=== PATIENT | male | born 1955 | race Caucasian/White ===

== ENCOUNTER 2020-01-28 10:21 | Inpatient (IN) | payer MEDICARE, OTHER, SELFPAY ==
[2020-01-28] VITALS (66 sets, daily range): BP systolic 138–189; BP diastolic 61–123; PULSE 30–75; RESP 10–28; TEMP 36.7–36.8; O2SAT 93–99; BMI 29.9
[2020-01-28] MEDS: FUROsemide 10 mg/mL SDV 10mL 80 MG IVP (10:41)
[2020-01-28] MEDS: hyDRALAzine 20 mg/mL INJ 1 mL IVP (10:41)
[2020-01-28] MEDS: nitroglycerin 1 gm/inch oint Pkt 0.5 INCH TOPICAL (10:42)
--- NOTE | 2020-01-28 10:42 | XR_ITS ---
WS: [id number] Exam: XR chest 1V portable [id number] Date/Time of Exam: 01/28/2020 10:42 AM Reason For Exam: dyspnea/cough No priors. The lungs are fully expanded. There is coarsening of interstitial markings throughout both lungs that may represent chronic change. No consolidating infiltrates are seen. No pleural effusions. Cardiac e nlargement noted. The mediastinum and bony thorax are intact. Monitoring leads superimpose the chest. XR/XR chest 1V portable [id number] IMPRESSION: 1. Coarsening of interstitial markings throughout both lungs that may represent chronic change. 2. No acute cardiopulmonary finding. Mild cardiomegaly
--- NOTE | 2020-01-28 10:42 | ECG_ITS ---
Test Date: 2020-01-28 Pat Name: Dimitry Htuson Department: Room: Gender: Male Cardiology Physician: : [id number] Requested By: Aron Rodriguez Order Number: [id number] Reading MD: Measurements Intervals [place] Rate: 38 P: GA: -1 QRS: 72 QRSD: 152 T: 197 QT: 604 QTc: 481 Interpretive Statements SINUS BRADYCARDIA WITH 2ND DEGREE AV BLOCK, 2:1 OR MOBITZ TYPE II RIGHT BUNDLE BRANCH BLOCK [120+ ms QRS DURATION, UPRIGHT V1, 40+ ms S IN I/aVL/V4/V5/V6] ST DEVIATION AND MODERATE T-WAVE ABNORMALITY, CONSIDER INFERIOR ISCHEMIA [-0.1+ mV T WAVE IN II/aVF] PROLONGED QT INTERVAL CRITICAL TEST RESULT No previous ECG available for comparison [id number] f
--- NOTE | 2020-01-28 10:43 | W.ED.ARRPALP ---
HPI - Arrhythmia/Palpitations General: Chief Complaint: Arrhythmia/Palpitations Stated Complaint: low heartrate Time Seen by Provider: 01/28/20 10:38 History of Present Illness: HPI narrative: 64-year-old male presents to the emergency room with a complaint of slow heart rate lightheadedness and dizziness. Patient was previously on metoprolol and recently had it stopped. He had a stay at the [facility] very recently and was discharged home off of his metoprolol. He continued to be on Lasix he does have some chronic kidney disease according to the daughter. He denies having any chest pain. He has poor exercise tolerance very lightheaded and dizzy with any activity. MD complaint: palpitations Onset (ago): day(s) Duration: constant Severity: severe Context: occurred during rest and occurred during exertion Arrhythmia history: other (Bradycardia) Associated symptoms: Reports short of breath and other (Orthopnea); Deny anxiety, cough, diaphoresis, muscle cramps, nausea, paresthesias, pre-syncope, sense of impending doom, syncope or vomiting Review of Systems Const: Denies: diaphoresis ENMT: Denies: throat pain, ear or mastoid pain, nasal discharge or nasal congestion Card: Denies: syncope or pre-syncope Resp: Denies: dyspnea, productive cough or non-productive cough GI: Denies: nausea or vomiting : Denies: flank pain, dysuria, urinary frequency or urinary urgency Musc: Denies: muscle cramps Skin/Breast: Denies: rash or pruritus Psych: Denies: anxiety PFSH ED PFSH: Medical History Chronic kidney disease COPD (chronic obstructive pulmonary disease) History of atrial fibrillation History of congestive heart failure Hypertension Peptic ulcer disease Tobacco abuse Surgical History Hx of cardiac cath December 2012, stent to LAD performed by Dr. Morataya Family History Mother Chronic kidney disease (CKD) ESRD, on PD Father CAD (coronary artery disease) Social History Smoking and tobacco status: current every day smoker cigarettes Alcohol intake: current Alcohol intake frequency: 0-2 Drinks per Day Substance/Drug Use: never Physical Exam Const: COMMON NORMALS: no acute distress GENERAL APPEARANCE: cooperative and comfortable ORIENTATION/CONSCIOUSNESS: Yes awake, Yes oriented to person, Yes oriented to place and Yes oriented to time HENMT: COMMON NORMALS: normocephalic, atraumatic and hearing grossly normal bilaterally HEAD & SCALP: normocephalic and atraumatic Eye: COMMON NORMALS: Equal, round and reactive pupils present, EOMs intact bilaterally, conjunctivae normal and no scleral icterus CONJUNCTIVA: Yes conjunctivae normal PUPIL: Yes Equal, round and reactive pupils present Neck/C-Spine: COMMON NORMALS: full ROM, no lymphadenopathy, supple and no JVD Lymph: LYMPHATIC: no lymphadenopathy noted and no lymphedema noted Resp: COMMON NORMALS: normal respiratory effort, No retractions, No use of accessory muscles and clear to auscultation bilaterally AUSCULTATION: clear to auscultation bilaterally Cardio: COMMON NORMALS: no JVD, regular rhythm and No murmurs present (Cardio) RATE: bradycardic RHYTHM: regular rhythm GI: COMMON NORMALS: Soft to palpation and No hepatosplenomegaly present AUSCULTATION: Yes normoactive bowel sounds PALPATION: Yes Soft to palpation, No Tenderness to palpation present (GI), No Guarding due to palpation present (GI) and Yes No hepatosplenomegaly present Extremity: COMMON NORMALS: normal to inspection, capillary refill normal, no clubbing, cyanosis or edema, no calf tenderness and no pedal edema Neuro: SENSORIUM/ORIENTATION: Yes oriented to person, Yes oriented to place and Yes oriented to time Skin: COMMON NORMALS: no rashes or lesions noted GENERAL SKIN EXAM: no rashes or lesions noted Course Vital Signs: Vital signs: Vital Signs Temperature 97.6 F 01/29/20 08:00 Pulse Rate 40 L 01/29/20 08:00 Respiratory Rate 18 01/29/20 08:00 Blood Pressure 176/79 01/29/20 08:00 Pulse Oximetry 95 01/29/20 06:00 MDM - Arrhythmia/Palpitations MDM Narrative: Medical decision making narrative: Admit to the ICU. Patient has been given atropine which did not really make much of improvement in his heart rate. However he is relatively asymptomatic while laying in bed his blood pressure is still actually very elevated and he was started on nitro drip to control his blood pressure. Dr. Newman is seen the patient in the emergency room he will contact Dr. Hutchinson to look at getting an implantable pacer defibrillator. Electrolytes are normal of concern is patient does have a prolonged QT however it is probably related to his Mobitz type II block. Lab Data: Labs: Lab Results 01/28/20 01/28/20 01/28/20 Range/Units 10:37 10:37 10:37 WBC 12.5 H (4.0-10.0) 10^3/ uL RBC 4.15 (4.1-5.3) 10^6/u L Hgb 13.5 (11.7-16.6) g/dL Hct 40.8 L (42.0-52.0) % MCV 98.3 H (80-94) fL MCH 32.5 (28.0-34.0) pg MCHC 33.1 (30.0-36.0) g/dL RDW 13.0 (12.1-15.1) % Plt Count 168 (130-400) 10^3/c mm MPV 11.3 H (7.4-10.4) fL Neut % (Auto) 70.9 % Lymph % (Auto) 17.5 % [place] % (Auto) 6.9 % Eos % (Auto) 3.5 % Baso % (Auto) 0.6 % Neut # (Auto) 8.89 H (1.8-7.7) 10^3/u L Lymph # (Auto) 2.2 (0.8-4.8) 10^3/u L [place] # (Auto) 0.9 (0.2-0.9) 10^3/u L Eos # (Auto) 0.4 (0.0-0.8) 10^3/u L Baso # (Auto) 0.1 (0.0-0.1) 10^3/u L Nucleated RBC % (a uto) 0 % Nucleated RBCs # 0.0 /100WBC Sodium 141 (136-145) mmol/L Potassium 3.4 L (3.5-5.1) mmol/L Chloride 100 (98-107) mmol/L Carbon Dioxide 33 H (22-29) mmol/L Anion Gap 11.4 (5-19) BUN 19 (8-23) mg/dL Creatinine 2.6 H (0.7-1.2) mg/dL GFR Calculation 24.8 L (90-130) mL/min Glucose 93 (65-115) mg/dL Calculated Osmolal ity 294 (285-295) mOsm/k g Calcium 8.9 (8.5-10.5) mg/dL Magnesium 2.1 (1.7-2.3) mg/dL Total Bilirubin 0.4 (0.15-1.2) mg/dL AST 13 (0-40) U/L ALT 20 (0-41) U/L Alkaline Phosphata se 70 (40-130) IU/L Creatine Kinase 32 L (39-308) U/L Troponin T Baselin e 52 H (0-15) ng/L NT-Pro-B Natriuret Pep 9549 H (0-125) pg/mL Total Protein 6.2 L (6.6-8.7) g/dL Albumin 3.7 (3.5-5.2) g/dL Globulin 2.5 (1.3-4.6) g/dL TSH (0.27-4.20) uIU/ mL 01/28/20 Range/Units 10:37 WBC (4.0-10.0) 10^3/ uL RBC (4.1-5.3) 10^6/u L Hgb (11.7-16.6) g/dL Hct (42.0-52.0) % MCV (80-94) fL MCH (28.0-34.0) pg MCHC (30.0-36.0) g/dL RDW (12.1-15.1) % Plt Count (130-400) 10^3/c mm MPV (7.4-10.4) fL Neut % (Auto) % Lymph % (Auto) % [place] % (Auto) % Eos % (Auto) % Baso % (Auto) % Neut # (Auto) (1.8-7.7) 10^3/u L Lymph # (Auto) (0.8-4.8) 10^3/u L [place] # (Auto) (0.2-0.9) 10^3/u L Eos # (Auto) (0.0-0.8) 10^3/u L Baso # (Auto) (0.0-0.1) 10^3/u L Nucleated RBC % (a uto) % Nucleated RBCs # /100WBC Sodium (136-145) mmol/L Potassium (3.5-5.1) mmol/L Chloride (98-107) mmol/L Carbon Dioxide (22-29) mmol/L Anion Gap (5-19) BUN (8-23) mg/dL Creatinine (0.7-1.2) mg/dL GFR Calculation (90-130) mL/min Glucose (65-115) mg/dL Calculated Osmolal ity (285-295) mOsm/k g Calcium (8.5-10.5) mg/dL Magnesium 2.2 (1.7-2.3) mg/dL Total Bilirubin (0.15-1.2) mg/dL AST (0-40) U/L ALT (0-41) U/L Alkaline Phosphata se (40-130) IU/L Creatine Kinase (39-308) U/L Troponin T Baselin e (0-15) ng/L NT-Pro-B Natriuret Pep (0-125) pg/mL Total Protein (6.6-8.7) g/dL Albumin (3.5-5.2) g/dL Globulin (1.3-4.6) g/dL TSH 1.13 (0.27-4.20) uIU/ mL Discharge Plan Discharge Patient Disposition: Admitted As Inpatient Admit Provider: Alise Sanford Clinical Impression: Heart block AV second degree, Hypertension, COPD (chronic obstructive pulmonary disease), Chronic kidney disease, History of congestive heart failure Condition: Stable Interventions: ED Discharge Assessment Last Done: 01/28/20 12:46 ED Charges Last Done: 01/28/20 12:46 Discharge Date/Time: 01/28/20 13:39 Coding Level of Care Code ED Electrical Panel Builder for Chg Fwd Exam Comprehensive
[2020-01-28 10:51] LABS: Basophils # 0.1 10^3/uL (0.0-0.1); Basophils % 0.6 %; Eosinophils # 0.4 10^3/uL (0.0-0.8); Eosinophils % 3.5 %; Hematocrit 40.8 % (42.0-52.0); Hemoglobin 13.5 g/dL (11.7-16.6); Lymphocytes # 2.2 10^3/uL (0.8-4.8); Lymphocytes % 17.5 %; Mean Corpuscular HGB Conc 33.1 g/dL (30.0-36.0); Mean Corpuscular Hemoglobin 32.5 pg (28.0-34.0); Mean Corpuscular Volume 98.3 fL (80-94); Mean Platelet Volume 11.3 fL (7.4-10.4); Monocytes # 0.9 10^3/uL (0.2-0.9); Monocytes % 6.9 %; Neutrophils # 8.89 10^3/uL (1.8-7.7); Neutrophils % 70.9 %; Nucleated Red Blood Cells % 0 %; Platelet Count 168 10^3/cmm (130-400); Red Blood Count 4.15 10^6/uL (4.1-5.3); White Blood Count 12.5 10^3/uL (4.0-10.0)
--- NOTE | 2020-01-28 10:51 | PC.NURSE ---
pt also has left shoulder pain from a fall
[2020-01-28 11:03] LABS: Troponin(5th) Baseline 52 ng/L (0-15)
[2020-01-28] MEDS: atropine 0.1 mg/mL Syr 10 mL 0.5 MG IVP ×2 (11:05→11:06)
[2020-01-28 11:09] LABS: Alanine Aminotransferase 20 U/L (0-41); Albumin Level 3.7 g/dL (3.5-5.2); Alkaline Phosphatase 70 IU/L (40-130); Anion Gap 11.4 (5-19); Aspartate Amino Transferase 13 U/L (0-40); Blood Urea Nitrogen 19 mg/dL (8-23); Calcium 8.9 mg/dL (8.5-10.5); Carbon Dioxide 33 mmol/L (22-29); Chloride 100 mmol/L (98-107); Creatine Phosphokinase 32 U/L (39-308); Globulin 2.5 g/dL (1.3-4.6); Glomerular Filtration Rate 24.8 mL/min (90-130); Glucose 93 mg/dL (65-115); Magnesium 2.1 mg/dL (1.7-2.3); NT Pro B Type Natriuretic Pept 9549 pg/mL (0-125); Osmolality Calculated 294 mOsm/kg (285-295); Potassium 3.4 mmol/L (3.5-5.1); Sodium 141 mmol/L (136-145); Total Bilirubin 0.4 mg/dL (0.15-1.2); Total Protein 6.2 g/dL (6.6-8.7)
--- NOTE | 2020-01-28 11:12 | PC.NURSE ---
per verbal order of ER physician NTP removed from pt and pt placed on pacer pads and zoll monitor.
[2020-01-28] MEDS: nitroglycerin drip 50 MG/250 ML PREMIX IV (11:18)
--- NOTE | 2020-01-28 11:36 | XR_ITS ---
WS: [id number] Exam: XR shoulder LT min 2V* [id number] Date/Time of Exam: 01/28/2020 11:36 AM Reason For Exam: pain No fracture or dislocation. Soft tissue calcification seen along the humeral head suggesting calcific bursitis and/or tendinitis. Arthrosis at the AC joint with soft tissue calcification. XR/XR shoulder LT min 2V* [id number] IMPRESSION: 1. No fracture or dislocation. 2. Probable calcific tendinitis and/or bursitis. AC joint arthrosis and degener ative change.
--- NOTE | 2020-01-28 12:16 | PM.CONSULT ---
Providers/Reason For Consult Consulting Physican/Specialty*: Cardiology Reason for Consult*: Heart block History of Present Illness History of Present Illness Dimitry Hutson is a 64 year old male presented to the emergency room with dizziness shortness of breath presyncope and heart rate of 38. He was found to be in Mobitz type II heart block and a systolic blood pressure around 180. Patient is hard of hearing therefore source of history is daughter who is by bedside. According to her patient has history of congestive heart failure, COPD, hypertension and chronic kidney disease with GFR less than 30. Patient was admitted few days ago at an outside hospital for weakness dizziness shortness of breath and bradycardia. He was at that time on metoprolol for blood pressure reasons. He was taken off of metoprolol and sent home. His condition did not improve he continued to be weak and now he is to the point that he barely can walk a few feet without being short of breath. Today when his heart rate dips down into 30s he decided to come to the ER. He denies chest pain he continues to smoke few cigarettes a day. He denies any prior history of intervention. In the past he has been told that he may will get pacemaker at some point. Meds/Allergies Home Medications and Allergies Home Medications Medication Instructions Recorded Confirmed Last Taken Type aspirin 81 mg PO DAILY 01/28/20 01/28/20 01/28/20 History bumetanide 1 mg PO BID 01/28/20 01/28/20 01/28/20 History clopidogrel 75 mg PO DAILY 01/28/20 01/28/20 01/28/20 History lisinopril 20 mg PO DAILY 01/28/20 01/28/20 01/28/20 History simvastatin 40 mg PO DAILY 01/28/20 01/28/20 01/27/20 History tramadol 50 mg PO Q6H PRN 01/28/20 01/28/20 Unknown History Allergies Allergy/AdvReac Type Severity Reaction Status Date / Time fish derived Allergy ALGY-Anaphy Verified 01/28/20 10:43 laxis Iodinated Contrast Media Allergy ALGY-Anaphy Verified 01/28/20 10:43 laxis Current Medications Current Medications Generic Name Dose Route Start Last Admin Trade Name Freq PRN Reason Stop Dose Admin Nitroglycerin/Dextrose 50 mg in 250 mls @ 0 mls/hr 01/28/20 11:00 01/28/20 11:18 Nitroglycerin Drip IV 5 mcg/min .Q0M JOAN 1.5 mls/hr Administration Protocol Per Protocol PFSH Acute PFSH: Medical History Chronic kidney disease COPD (chronic obstructive pulmonary disease) History of atrial fibrillation History of congestive heart failure Hypertension Peptic ulcer disease Tobacco abuse Surgical History Hx of cardiac cath December 2012, stent to LAD performed by Dr. Morataya Family History Mother Chronic kidney disease (CKD) ESRD, on PD Father CAD (coronary artery disease) Social History Smoking and tobacco status: current every day smoker cigarettes Alcohol intake: current Alcohol intake frequency: 0-2 Drinks per Day Substance/Drug Use: never Vitals/I&O/Wt Last Vital Signs Temp 98.2 F 01/28/20 10:28 Pulse 38 L 01/28/20 11:11 Resp 20 H 01/28/20 11:11 BP 143/61 01/28/20 11:11 Pulse Ox 95 01/28/20 11:11 Weight last 48 hrs Weight 209 lb Physical Exam Narrative: EXAM NARRATIVE: GENERAL: Patient is alert, awake and oriented x3. NECK: No jugular vein distension. HEENT: No cyanosis. No icterus. No pallor. HEART: Regular S1 and S2. No murmur, rub or gallop. LUNGS: Decreased breath sound bilaterally with prolonged expiration ABDOMEN: Soft, nontender and nondistended. Positive bowel sounds. No guarding, rebound or tenderness. CENTRAL NERVOUS SYSTEM: Grossly nonfocal. EXTREMITIES: Lower extremities without edema bilaterally. Pulses palpable in the lower extremities, both dorsalis pedis and posterior tibial. A&P Assessment and plan (1) Heart block AV second degree: Patient has Mobitz type II heart block with prolonged QT most likely due to bradycardia, her electrolyte balances are fine. We will check magnesium. He was taking erythromycin but quit 3 to 4 days ago. Most likely patient has underlying conduction abnormality and now exhibiting complete heart block. He is stable vital fu infact systolic blood pressure is around 180 since he is mentating good we will monitor him most likely he will be getting permanent pacemaker, we will rule him out for any reversible cause. He denies any tick bite or exposure to Covid. I will also obtain echocardiogram to assess his LV function. He is a chronic smoker may need to be ruled out for acute coronary syndrome as well. Status: Acute (2) Chronic kidney disease: Patient has known chronic kidney disease we will take him off of lisinopril. I will stop diuretics, may have to rehydrate him Status: Acute Qualifiers: Chronic kidney disease stage: stage 4 (severe) Qualified Code(s): N18.4 - Chronic kidney disease, stage 4 (severe) (3) COPD (chronic obstructive pulmonary disease): As per medicine Status: Acute Qualifiers: Emphysema type: unspecified (4) Hypertension: Patient has hypertension with uncontrolled systolic blood pressure 180 recommend nitro drip for now. Status: Acute Qualifiers: Hypertension type: essential hypertension Qualified Code(s): I10 - Essential (primary) hypertension (5) Tobacco abuse: Advised quitting smoking. 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
[2020-01-28] MEDS: nicotine 21 mg Patch 1 PATCH TRANSDERMA (12:31)
--- NOTE | 2020-01-28 12:31 | P.HP_ITS ---
Providers/Chief Complaint Chief Complaint: CHEST PAIN, LOW HR History of Present Illness Dimitry Hutson is a 64 year old male with a past medical history of congestive heart failure, hypertension and peptic ulcer disease that presented to the emergency department for slow heart rate. Patient had been hospitalized last week at [facility] due to concern for pneumonia. Was noted to have bradycardia at that time and taken off of his metoprolol. Patient has a history of coronary artery disease with a stent to his LAD in 2012. Has only been following with his primary care provider, has not followed with cardiology in several years. Patient has had some dizzy spells at home as well as a fall. Daughter brought him into the ER today for further evaluation and treatment due to concern for his slow heart rate Patient was seen and evaluated in the emergency department noted to have symptomatic bradycardia, cardiology consulted and patient was admitted for further evaluation and treatment Patient is very hard of hearing, most HPI obtained from patient's daughter Review of Systems Const: Denies: fever(s) or chills Eyes: Denies: change in vision ENMT: Denies: nasal congestion Card: Denies: chest pain, palpitations or edema Resp: Reports: productive cough (Chronic, unchanged); Denies: dyspnea or hemoptysis GI: Reports: diarrhea; Denies: abdominal pain, nausea, vomiting, constipation, hematochezia or melena : Denies: dysuria or hematuria Musc: Denies: extremity pain or muscle cramps Skin/Breast: Denies: rash or new lesions Neuro: Reports: dizziness; Denies: headache(s) Psych: Denies: anxiety or depression Endo: Denies: polyuria or hot flashes [place]/Lymph: Denies: easy bruising or easy bleeding Medications/Allergies Home Medications Medication Instructions Recorded Confirmed Last Taken Type aspirin 81 mg PO DAILY 01/28/20 01/28/20 01/28/20 History bumetanide 1 mg PO BID 01/28/20 01/28/20 01/28/20 History clopidogrel 75 mg PO DAILY 01/28/20 01/28/20 01/28/20 History lisinopril 20 mg PO DAILY 01/28/20 01/28/20 01/28/20 History simvastatin 40 mg PO DAILY 01/28/20 01/28/20 01/27/20 History tramadol 50 mg PO Q6H PRN 01/28/20 01/28/20 Unknown History Allergies Allergy/AdvReac Type Severity Reaction Status Date / Time fish derived Allergy ALGY-Anaphy Verified 01/28/20 10:43 laxis Iodinated Contrast Media Allergy ALGY-Anaphy Verified 01/28/20 10:43 laxis PFSH Acute PFSH: Medical History (Updated 01/28/20 @ 13:29 by Alfredo Avalos MD) Chronic kidney disease COPD (chronic obstructive pulmonary disease) History of atrial fibrillation History of congestive heart failure Hypertension Peptic ulcer disease Tobacco abuse Surgical History (Updated 01/28/20 @ 12:34 by Alise Sanford DO) Hx of cardiac cath December 2012, stent to LAD performed by Dr. Morataya Family History (Updated 01/28/20 @ 12:35 by Alise Sanford DO) Mother Chronic kidney disease (CKD) ESRD, on PD Father CAD (coronary artery disease) Social History (Updated 01/28/20 @ 12:36 by Alise Sanford DO) Smoking and tobacco status: current every day smoker cigarettes Alcohol intake: current Alcohol intake frequency: 0-2 Drinks per Day Substance/Drug Use: never Vitals/I&O/Wt Last Vital Signs Temp 98.2 F 01/28/20 10:28 Pulse 48 L 01/28/20 12:26 Resp 17 01/28/20 12:26 BP 159/104 01/28/20 12:26 Pulse Ox 95 01/28/20 12:26 Weight last 48 hrs Weight 94.801 kg Physical Exam Const: COMMON NORMALS: patient oriented x3 and alert GENERAL APPEARANCE: cooperative ORIENTATION/CONSCIOUSNESS: Yes awake, Yes oriented to person, Yes oriented to place, Yes oriented to time and Yes Other orientation findings (very hard of hearing) HENMT: COMMON NORMALS: normocephalic and atraumatic HEAD & SCALP: normocephalic and atraumatic Eye: COMMON NORMALS: Equal, round and reactive pupils present PUPIL: Yes Equal, round and reactive pupils present Neck/C-Spine: COMMON NORMALS: supple GENERAL: Yes normal visual inspection Resp: COMMON NORMALS: normal respiratory effort EFFORT & INSPECTION: Yes able to speak in complete sentences AUSCULTATION: clear to auscultation bilaterally, no rhonchi and no wheezes OTHER: diminished breath sounds b ilaterally, no wheezing or rhonchi Cardio: OTHER: bradycardic, no appreciable murmur GI: COMMON NORMALS: Soft to palpation and non-tender INSPECTION: No abdominal distension AUSCULTATION: Yes normoactive bowel sounds PALPATION: Yes Soft to palpation Extremity: COMMON NORMALS: no clubbing, cyanosis or edema and no calf tenderness Neuro: COMMON NORMALS: patient oriented x3, CN's II-XII intact bilaterally, moves all extremities and no focal motor deficits SENSORIUM/ORIENTATION: Yes alert, Yes oriented to person, Yes oriented to place and Yes oriented to time SPEECH: speech normal Psych: COMMON NORMALS: mental status grossly normal and cooperative Skin: COMMON NORMALS: no rashes or lesions noted GENERAL SKIN EXAM: no rashes or lesions noted Data : 01/28/20 10:37 01/28/20 10:37 CXR: I personally reviewed and interpreted this imaging study as follows: Radiologist's impression: XR/XR chest 1V portable [id number] IMPRESSION: 1. Coarsening of interstitial markings throughout both lungs that may represent chronic change. 2. No acute cardiopulmonary finding. Mild cardiomegaly Xray Ortho: I personally reviewed and interpreted this imaging study as follows: Radiologist's impression: IMPRESSION: 1. No fracture or dislocation. 2. Probable calcific tendinitis and/or bursitis. AC joint arthrosis and degenerative change. A&P Assessment and plan (1) Symptomatic bradycardia: Admit to ICU on telemetry Cardiology, Dr. Avalos consulted Plan for pacemaker placement Echocardiogram ordered for further evaluation Obtain records from outside facility Mag ordered, TSH ordered Hold any medications that cause worsening QT prolongation Status: Acute (2) COPD (chronic obstructive pulmonary disease): RTAT Oxygen per protocol Recommend outpatient PFTs Status: Acute Qualifiers: Emphysema type: unspecified (3) Chronic kidney disease: unknown baseline creatinine, back to 2012 patient had creatinine above 2 Monitor closely Strict I/Os obtain records from outside facility Status: Acute Qualifiers: Chronic kidney disease stage: stage 4 (severe) Qualified Code(s): N18.4 - Chronic kidney disease, stage 4 (severe) (4) Hypertension: with HTN urgency and started on nitro drip in the ED, will continue at this time Status: Acute Qualifiers: Hypertension type: essential hypertension Qualified Code(s): I10 - Essential (primary) hypertension (5) History of congestive heart failure: Given lasix in the ED x 1 Hold further bumex at this time Monitor strict intake and output as well as daily weights ECHO ordered and pending Status: Acute Additional A&P Information CAD with stent to LAD [place] [address] Morataya, continue asprin, plavix, statin. Not on beta hadley due to above Patient is very hard of hearing DVT ppx: SCDs, no pharmacologic ppx at this time due to anticipated procedure COde status: Full code Attestations Medical Necessity Statement*: Hospitalization due to symptomatic bradycardia requiring pacemaker placement, expected stay greater than 2 midnights Coding Level of Care Code Acute Experimental Physicist for g Fwd Exam Comprehensive Diagnoses Symptomatic bradycardia R00.1 COPD (chronic obstructive pulmonary disease) J44.9 Emphysema type: unspecified Chronic kidney disease N18.4 Chronic kidney disease stage: stage 4 (severe) Hypertension I10 Hypertension type: essential hypertension History of congestive heart failure Z86.79
--- NOTE | 2020-01-28 12:42 | ECG_ITS ---
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1955 Requested By: Aron Rodriguez Order Number: [id number] Reading MD: Measurements Intervals [place] Rate: 50 P: -62 [place]: 154 QRS: -70 QRSD: 154 T: 73 QT: 624 QTc: 573 Interpretive Statements ECTOPIC ATRIAL BRADYCARDIA WITH OCCASIONAL SUPRAVENTRICULAR PREMATURE COMPLEXES POSSIBLE LEFT ATRIAL ENLARGEMENT [-0.1mV P WAVE IN V1/V2] RIGHT BUNDLE BRANCH BLOCK [120+ ms QRS DURATION, UPRIGHT V1, 40+ ms S IN I/aVL/V4/V5/V6] LEFT ANTERIOR FASCICULAR BLOCK [QRS AXIS <= -45, QR IN I, RS IN II] LEFT VENTRICULAR HYPERTROPHY AND ST-T CHANGE [VOLTAGE CRITERIA PLUS ST/T ABNORMALITY] POSSIBLE SEPTAL MYOCARDIAL INFARCTION , OF INDETERMINATE AGE [30 ms Q WAVE IN V1/V2] PROLONGED QT INTERVAL CRITICAL TEST RESULT No previous ECG available for comparison [id number]
[2020-01-28 13:14] LABS: Magnesium 2.2 mg/dL (1.7-2.3); Thyroid Stimulating Hormone 1.13 uIU/mL (0.27-4.20)
--- NOTE | 2020-01-28 13:38 | PC.NURSE ---
650mL urine output while in the ED prior to admission to the ICU.
--- NOTE | 2020-01-28 15:12 | PC.NURSE ---
recd. from e.d. up to bed. ro. wt. bearing w/o diff. denies any pain. slow a-fib. amb. to bathroom w/o difficulty. voids very small amts but frequently.
--- NOTE | 2020-01-28 15:53 | PC.NURSE ---
making several trips to bathroom. voids small amts.
--- NOTE | 2020-01-28 16:48 | PM.CONSULT ---
Providers/Reason For Consult Consulting Physican/Specialty*: Dr. Hutchinson/cardiothoracic surgery Reason for Consult*: Mobitz type II AV heart block with symptomatic bradycardia refractory to medical management Requesting Physcian: Dr. Avalos Attending Physician: Alise Sanford DO History of Present Illness History of Present Illness Dimitry Hutson is a 64 year old male currently resting comfortably in the ICU after presenting to the emergency department with his daughter with concerns of progressive bradycardia. He presented with dizziness and shortness of breath and presyncope as well as a fall with a heart rate of 38. He has a comorbidities which include COPD, continued substantial tobacco use, congestive heart failure, and chronic kidney disease stage IV with a GFR of less than 30. He was recently hospitalized at [facility] for what was felt to be pneumonia to be bradycardic at that time. He has no history of coronary artery disease and prior stenting to the LAD in 2012. Admission EKG revealed bradycardia with a heart rate of 38 and second-degree AV block along with a right bundle branch and incomplete left AV block. Prolonged QT interval Dr. Avalos has contacted me by phone and requested permanent dual-chamber pacemaker implantation. Review of Systems Eyes: Reports: blurry vision ENMT: Denies: odynophagia Card: Reports: pre-syncope and dyspnea on exertion; Denies: chest pain Resp: Reports: non-productive cough; Denies: wheezing, pain on inspiration or hemoptysis GI: Reports: diarrhea; Denies: abdominal pain or hematemesis Neuro: Reports: dizziness Psych: Denies: anxiety or depression Uziel/Lymph: Denies: easy bruising, easy bleeding or petechiae Meds/Allergies Home Medications and Allergies Home Medications Medication Instructions Recorded Confirmed Last Taken Type aspirin 81 mg PO DAILY 01/28/20 01/28/20 01/28/20 History bumetanide 1 mg PO BID 01/28/20 01/28/20 01/28/20 History clopidogrel 75 mg PO DAILY 01/28/20 01/28/20 01/28/20 History lisinopril 20 mg PO DAILY 01/28/20 01/28/20 01/28/20 History simvastatin 40 mg PO DAILY 01/28/20 01/28/20 01/27/20 History tramadol 50 mg PO Q6H PRN 01/28/20 01/28/20 Unknown History Allergies Allergy/AdvReac Type Severity Reaction Status Date / Time fish derived Allergy ALGY-Anaphy Verified 01/28/20 10:43 laxis Iodinated Contrast Media Allergy ALGY-Anaphy Verified 01/28/20 10:43 laxis Current Medications Current Medications Generic Name Dose Route Start Last Admin Trade Name Freq PRN Reason Stop Dose Admin Nitroglycerin/Dextrose 50 mg in 250 mls @ 0 mls/hr 01/28/20 11:00 01/28/20 11:18 Nitroglycerin Drip IV 5 mcg/min .Q0M JOAN 1.5 mls/hr Administration Protocol Per Protocol PFSH Acute PFSH: Medical History Chronic kidney disease COPD (chronic obstructive pulmonary disease) History of atrial fibrillation History of congestive heart failure Hypertension Peptic ulcer disease Tobacco abuse Surgical History Hx of cardiac cath December 2012, stent to LAD performed by Dr. Morataya Family History Mother Chronic kidney disease (CKD) ESRD, on PD Father CAD (coronary artery disease) Social History Smoking and tobacco status: current every day smoker cigarettes Alcohol intake: current Alcohol intake frequency: 0-2 Drinks per Day Substance/Drug Use: never Vitals/I&O/Wt Last Vital Signs Temp 98.2 F 01/28/20 10:28 Pulse 44 L 01/28/20 14:30 Resp 22 H 01/28/20 14:30 BP 174/86 01/28/20 14:30 Pulse Ox 99 01/28/20 14:25 Weight last 48 hrs Weight 209 lb Physical Exam Const: COMMON NORMALS: patient oriented x3 HENMT: COMMON NORMALS: hearing grossly not normal bilaterally GENERAL EAR: hearing grossly impaired Laterality: bilateral Chest: COMMONS NORMALS: normal inspection of the chest (Of defibrillating lead and EKG leads removed from the left anterior chest wall at the planned site for pacemaker implantation.) and normal palpation of entire chest wall Resp: COMMON NORMALS: clear to auscultation bilaterally AUSCULTATION: clear to auscultation bilaterally Cardio: COMMON NORMALS: S1 normal heart sound present; negative for regular rate RATE: abnormal rate and bradycardic RHYTHM: abnormal rhythm (Ectopic beats with intermittent A. fib) irregularly irregular and with ectopic beats HEART SOUNDS: S1 normal heart sound present and no gallops BRUITS: no carotid bruits PERIPHERAL PULSES: radial pulses present positive bilateral 2+ GI: COMMON NORMALS: Soft to palpation PALPATION: Yes Soft to palpation and No Tenderness to palpation present (GI) Extremity: COMMON NORMALS: no clubbing, cyanosis or edema Neuro: COMMON NORMALS: patient oriented x3 A&P Assessment and plan (1) Heart block AV second degree: Mobitz type II AV block with symptomatic bradycardia including presyncope and recent fall. Medically refractory. Plan: We will plan for dual-chamber pacemaker implantation tomorrow afternoon. Appropriate preoperative testing will be confirmed. Details of the procedure were frankly discussed as well the rationale for recommending the procedure. Risks reviewed include the possibility of , stroke, heart attack, major bleeding, infection which may result in need to explant the leads and/or generator, pneumonia, pneumothorax requiring chest tube, migration of the leads requiring revision and repositioning, organ failure, failure to benefit, prolonged hospital stay, pain after the procedure, need for further procedures, inability to complete the procedure, and need for long-term followup and monitoring. All questions were answered. Appropriate consents will be provided for review and signature. Status: Acute Coding Level of Care Code Acute Channel Lip Wetter for [facility] Diagnoses Heart block AV second degree I44.1
[2020-01-28] MEDS: acetaminophen 325 mg Tablet 650 MG PO ×2 (16:57→22:57)
[2020-01-28 17:58] LABS: Troponin 5 6HR 52.23 ng/L (0-15); Troponin 5 6HR Delta 0.23 ng/L (0-12)
--- NOTE | 2020-01-28 18:03 | PC.NURSE ---
several trips to bathroom. was instructed to save urine, only saved once and that was only 100cc.
[2020-01-28] MEDS: bumetanide 1 mg Tablet PO (18:28)
[2020-01-28] MEDS: mupirocin oint 22 gm 1 APPLIC NOSTRIL-B (18:29)
--- NOTE | 2020-01-28 18:38 | PC.NURSE ---
cefazolin at 1630 is changed to access control specialist to surgery tomorrow.
--- NOTE | 2020-01-28 19:50 | PC.NURSE ---
Patient resting in bed with eyes closed. Patient does have crackles and expiratory wheezes noted in bilateral lower lobes. Nitro gtt running currently at 25mcg. Patient is alert and orientated, just [place]. Patient was ambulated to bathroom with stand by assist x1 so far thus shift. Dorsal pedal pulses palpable bilaterally +3. No edema noted. Patient continues to run adelita at 30-35 BPM. Patient denies pain. Continue care.
[2020-01-28] MEDS: TRAMadol 50 mg Tablet PO (20:29)
[2020-01-29] VITALS (30 sets, daily range): BP systolic 132–192; BP diastolic 72–136; PULSE 35–100; RESP 12–30; TEMP 36.4–37.1; O2SAT 93–100
--- NOTE | 2020-01-29 | SCC_ITS ---
Procedure Done: Dual chamber pacemaker implantation Implants: Pacemaker generator atrial-ventricular leads 504.4 seconds of fluoroscopic guidance, for a cumulative dose of 51.96 mGy, was provided to Dr. Hutchinson by the radiology department. C-arm images of the chest were saved for the patient's permanent record. LENY
--- NOTE | 2020-01-29 01:32 | PC.NURSE ---
Patient resting soundly in room with eyes closed. Patient did complain of knee pain earlier in the shift and PRN tramadol and Tylenol were given per orders. Pain level has decreased since medication administration. Call light within reach, continue care.
[2020-01-29 04:15] LABS: Basophils # 0.1 10^3/uL (0.0-0.1); Basophils % 0.6 %; Eosinophils # 0.3 10^3/uL (0.0-0.8); Eosinophils % 3.2 %; Hematocrit 39.3 % (42.0-52.0); Hemoglobin 12.8 g/dL (11.7-16.6); Lymphocytes # 2.1 10^3/uL (0.8-4.8); Lymphocytes % 19.3 %; Mean Corpuscular HGB Conc 32.6 g/dL (30.0-36.0); Mean Corpuscular Hemoglobin 32.5 pg (28.0-34.0); Mean Corpuscular Volume 99.7 fL (80-94); Mean Platelet Volume 11.3 fL (7.4-10.4); Monocytes # 0.7 10^3/uL (0.2-0.9); Monocytes % 6.4 %; Neutrophils # 7.45 10^3/uL (1.8-7.7); Neutrophils % 69.8 %; Nucleated Red Blood Cells % 0 %; Platelet Count 168 10^3/cmm (130-400); Red Blood Count 3.94 10^6/uL (4.1-5.3); White Blood Count 10.7 10^3/uL (4.0-10.0)
[2020-01-29 04:52] LABS: Anion Gap 14.3 (5-19); Blood Urea Nitrogen 18 mg/dL (8-23); Calcium 9.1 mg/dL (8.5-10.5); Carbon Dioxide 27 mmol/L (22-29); Chloride 101 mmol/L (98-107); Glucose 90 mg/dL (65-115); Osmolality Calculated 289 mOsm/kg (285-295); Potassium 3.3 mmol/L (3.5-5.1); Sodium 139 mmol/L (136-145)
--- NOTE | 2020-01-29 05:38 | PC.NURSE ---
Bath given with 4% hibaclense solution per orders. Patient tolerated well and new gown changed. Denies any pain, call light within reach. continue care.
--- NOTE | 2020-01-29 05:39 | PC.NURSE ---
SHIFT SUMMARY: Patient alert and orientated, hard of hearing. Patient ambulates self to bathroom frequently. Patient is able to voice concerns and make needs known. Antibiotics given per orders before procedure of pacemaker insertion. Patient has a nitro gtt running at 25mcg. Patient did accidently pull IV out earlier in the shift, and a new 18 gauge IV was started in left AC space. Patient denies pain. Call light within reach. Continue care.
--- NOTE | 2020-01-29 06:09 | P.PN_ITS ---
Subjective Subjective: Interval history: Sleeping on rounds this morning. Heart rate 36. ICU nurses report no difficulties overnight. Responding appropriate. No chest pain. Vitals/I&O/Wt Last Vital Signs Temp 97.8 F 01/29/20 04:00 Pulse 44 L 01/29/20 04:00 Resp 23 H 01/29/20 04:00 BP 181/72 01/29/20 04:00 Pulse Ox 95 01/29/20 02:00 01/28/20 01/28/20 01/29/20 14:59 22:59 06:59 Intake Total 492.775 / 492.775 50 / 542.775 Balance 492.775 / 492.775 50 / 542.775 Weight last 48 hrs Weight 209 lb Physical Exam Const: COMMON NORMALS: patient oriented x3 HENMT: COMMON NORMALS: hearing grossly not normal bilaterally GENERAL EAR: hearing grossly impaired Chest: COMMONS NORMALS: normal inspection of the chest and normal palpation of entire chest wall CHEST: Yes Symmetrical chest wall rise Resp: COMMON NORMALS: normal respiratory effort and clear to auscultation bi laterally AUSCULTATION: clear to auscultation bilaterally Cardio: COMMON NORMALS: S1 normal heart sound present; negative for regular rate RATE: abnormal rate and bradycardic RHYTHM: abnormal rhythm irregularly irregular and with ectopic beats HEART SOUNDS: S1 normal heart sound present Extremity: COMMON NORMALS: no clubbing, cyanosis or edema Neuro: COMMON NORMALS: patient oriented x3 Data : 01/29/20 03:24 01/29/20 03:24 A&P Assessment and plan (1) Heart block AV second degree: Medically refractory Mobitz type II AV heart block with presyncope and recent fall Will plan for pacemaker implantation this afternoon Status: Acute Attestations Medical Necessity Statement*: Medically refractory Mobitz type II AV heart block with presyncope and recent fall Time Spent in Patient Care: less than 15 minutes Coding Level of Care Code Acute Geological Survey Field Assistant for Dario Crum Diagnoses Heart block AV second degree I44.1
--- NOTE | 2020-01-29 07:00 | USCV_ITS ---
Dimitry Hutson Age: 64 Gender: M : 1955 Exam Date: 01/29/2020 06:01 Ordering Phys: Alise Sanford DO Technologist: Bianca Randle [place] [facility] [place]: BRADYCARDIA, CHF BP: 176 / 82 HR: 35 Rhythm: Sinus Technical Quality: Adequate MEASUREMENTS (Male / Female) Normal Values 2D ECHO LV Diastolic Diameter PLAX 4.1 cm 4.2 - 5.9 / 3.9 - 5.3 cm LV Systolic Diameter PLAX 2.6 cm LV Chamber Size 4.8 cm IVS Diastolic Thickness 1.1 cm 0.6 - 1.0 / 0.6 - 0.9 cm IVS Systolic Thickness 1.9 cm LVPW Diastolic Thickness 1.6 cm 0.6 - 1.0 / 0.6 - 0.9 cm LVPW Systolic Thickness 1.5 cm RV Chamber Size 3.8 cm LVOT Diameter 2.0 cm LV Ejection Fraction 2D Teich 66.5 % LA Diameter 4.0 cm LA Width 3.7 cm LA Height 4.4 cm RA Width 4.6 cm RA Height 5.6 cm Aorta at Sinotubular Diameter 3.4 cm M-MODE LV Diastolic Diameter MM 5.7 cm 4.2 - 5.9 / 3.9 - 5.3 cm LV Systolic Diameter MM 4.3 cm LV Ejection Fraction MM Teich 47.8 % IVS Diastolic Thickness MM 0.7 cm 0.6 - 1.0 / 0.6 - 0.9 cm IVS Systolic Thickness MM 0.7 cm LVPW Diastolic Thickness MM 1.2 cm 0.6 - 1.0 / 0.6 - 0.9 cm LVPW Systolic Thickness MM 2.0 cm RV Diastolic Diameter MM 1.6 cm Aortic Annulus Diameter 4.0 cm LA Ao Ratio MM 1.1 MV E Point Septal Separation 1.4 cm DOPPLER AV Peak Velocity 175.0 cm/s LVOT Peak Velocity 138.0 cm/s AV Area Cont Eq vti 2.4 cm squared AV Area Cont Eq pk 2.6 cm squared MV Area PHT 6.5 cm squared Mitral E to A Ratio 0.8 MV E' Velocity 48.0 cm/s Mitral E to MV E' Ratio 16.6 Mitral E to LV E' Lateral Ratio 14.5 Mitral E to LV E' Septal Ratio 20.0 TR Peak Velocity 182.0 cm/s TR Peak Gradient 13.3 mmHg TR Mean Velocity 108.8 cm/s TR Mean Gradient 6.1 mmHg TR Velocity Time Integral 43.9 cm TV Peak E Velocity 80.0 cm/s Right Atrial Pressure 3.0 mmHg Pulmonary Artery Systolic Pressu 16.3 mmHg PV Peak Velocity 59.0 cm/s RV Acceleration Time 0.2 s RV Ejection Time 0.5 s RV AcT/ET 0.4 FINDINGS Left Ventricle Mildly increased left ventricular cavity size. Moderately decreased left ventricular systolic function. Global left ventricular hypokinesis. Left ventricular ejection fraction is estimated at 40 %. Grade I/IV diastolic dysfunction (abnormal relaxation filling pattern), normal to mildly elevated filling pressures. Right Ventricle The right ventricle is normal in size and function. Right Atrium The right atrium is normal in size. Left Atrium The left atrium is normal in size. Mitral Valve Mildly thickened mitral valve. No mitral valve stenosis. Mild mitral valve regurgitation. Aortic Valve Moderate aortic valve calcification. No aortic valve stenosis. No aortic valve regurgitation. Tricuspid Valve Structurally normal tricuspid valve without significant stenosis or regurgitation. Pulmonary artery systolic pressure is normal. Pulmonic Valve Structurally normal pulmonic valve without significant stenosis. There is no pulmonic regurgitation. Pericardium Normal pericardium without effusion. Aorta Normal ascending aorta dimension. CONCLUSIONS 1-Mildly increased left ventricular cavity size. Moderately decreased left ventricular systolic function. Global left ventricular hypokinesis. Left ventricular ejection fraction is estimated at 40 %. Grade I/IV diastolic dysfunction (abnormal relaxation filling pattern), normal to mildly elevated filling pressures. 2-Moderate aortic valve calcification. No aortic valve stenosis. No aortic valve regurgitation. 3-Mildly thickened mitral valve. No mitral valve stenosis. Mild mitral valve regurgitation. 4-There is no pericardial effusion. 5-Pulmonary artery systolic pressure is within normal limits. 6-Right atrial pressure is around 5 mm of mercury. 7-when compared to the prior echocardiogram dated 12/09/2012 left ventricle ejection fraction has decreased from mildly reduced 50% to moderately reduced 40% now. Alfredo Avalos MD (Electronically Signed) Final Date: 29 January 2020 19:54 S
[2020-01-29] MEDS: bumetanide 1 mg Tablet PO (09:09)
[2020-01-29] MEDS: atorvastatin 40 mg Tablet 20 MG PO (09:09)
[2020-01-29] MEDS: pantoprazole 40 mg SDV IVP (09:09)
[2020-01-29] MEDS: lisinopril 20 mg Tablet PO (09:09)
--- NOTE | 2020-01-29 09:09 | ECG_ITS ---
[facility] Test Date: 2020-01-29 Pat Name: Dimitry Hutson Department: Room: ICU04 Gender: Male Electronic Warfare Officer: : 1955 Requested By: Alise Sanford Order Number: [id number] Reading MD: POONAM GARZA Measurements Intervals [place] Rate: 39 P: [place]: -1 QRS: -73 QRSD: 155 T: 69 QT: 594 QTc: 480 Interpretive Statements SINUS BRADYCARDIA WITH 2ND DEGREE AV BLOCK, MOBITZ TYPE II RIGHT BUNDLE BRANCH BLOCK [120+ ms QRS DURATION, UPRIGHT V1, 40+ ms S IN I/aVL/V4/V5/V6] LEFT ANTERIOR FASCICULAR BLOCK [QRS AXIS <= -45, QR IN I, RS IN II] ANTEROSEPTAL MYOCARDIAL INFARCTION [40+ ms Q WAVE IN V1-V4], OF INDETERMINATE AGE INTERPRETATION BASED ON A DEFAULT AGE OF 40 YEARS Compared to ECG 01/28/2020 12:43:48 Bradycardia, nonsinus no longer present Electronically Signed On 01-29-2020 21:04:40 CDT by POONAM GARZA [email or web address] [facility] [employer] [email or web address]/OV/[id number]
[2020-01-29] MEDS: aspirin 81 mg Chew Tablet PO (09:10)
[2020-01-29] MEDS: chlorhexidine gluconate 4% Btl 118 mL 1 APPLIC TOPICAL (09:11)
[2020-01-29] MEDS: TRAMadol 50 mg Tablet PO (09:22)
--- NOTE | 2020-01-29 09:51 | P.PN_ITS ---
Subjective Subjective: Interval history: Patient awake in bed at time of exam. Denied any chest pain or shortness of breath. Discussed with patient plan for pacemaker placement this afternoon, he verbalized understanding and agreed with plan. Vitals/I&O/Wt Last Vital Signs Temp 97.6 F 01/29/20 08:00 Pulse 40 L 01/29/20 08:00 Resp 18 01/29/20 08:00 BP 176/79 01/29/20 08:00 Pulse Ox 95 01/29/20 06:00 01/28/20 01/29/20 01/29/20 22:59 06:59 14:59 Intake Total 492.775 / 492.775 50 / 542.775 103.875 / 103.875 Balance 492.775 / 492.775 50 / 542.775 103.875 / 103.875 Weight last 48 hrs Weight 92.334 kg Weight 94.801 kg Physical Exam Const: COMMON NORMALS: patient oriented x3 and alert GENERAL APPEARANCE: cooperative ORIENTATION/CONSCIOUSNESS: Yes awake, Yes oriented to person, Yes oriented to place, Yes oriented to time and Yes Other orientation findings (very hard of hearing) HENMT: COMMON NORMALS: normocephalic and atraumatic HEAD & SCALP: normocephalic and atraumatic Eye: COMMON NORMALS: Equal, round and reactive pupils present PUPIL: Yes Equal, round and reactive pupils present Neck/C-Spine: COMMON NORMALS: supple GENERAL: Yes normal visual inspection Resp: COMMON NORMALS: normal respiratory effort EFFORT & INSPECTION: Yes able to speak in complete sentences AUSCULTATION: no rhonchi and no wheezes OTHER: diminished breath sounds bilaterally, no wheezing or rhonchi Cardio: OTHER: bradycardic, no appreciable murmur Extremity: COMMON NORMALS: no clubbing, cyanosis or edema and no calf tenderness Neuro: COMMON NORMALS: patient oriented x3, CN's II-XII intact bilaterally, moves all extremities and no focal motor deficits SENSORIUM/ORIENTATION: Yes alert, Yes oriented to person, Yes oriented to place and Yes oriented to time SPEECH: speech normal Psych: COMMON NORMALS: mental status grossly normal and cooperative Skin: COMMON NORMALS: no rashes or lesions noted GENERAL SKIN EXAM: no rashes or lesions noted Data : 01/29/20 03:24 01/29/20 03:24 A&P Assessment and plan (1) Symptomatic bradycardia: Cardiology consult appreciated, Dr. Avalos and Dr. Hutchinson Echocardiogram pending Plan for pacemaker placement this afternoon Hold any medications that cause worsening QT prolongation Status: Acute (2) COPD (chronic obstructive pulmonary disease): RTAT Oxygen per protocol Recommend outpatient PFTs Status: Acute (3) Chronic kidney disease: Chronic kidney disease, baseline creatinine 2-3 Status: Acute (4) Hypertension: Hypertensive urgency, remains on nitro drip per cardiology Status: Acute (5) History of congestive heart failure: Bumex 1 mg twice daily, hold afternoon dose strict intake and output as well as daily weights ECHO ordered and pending Status: Acute Additional A&P Information CAD with stent [place] LAD [place] [address] Morataya, continue asprin, plavix, statin. Not on beta hadley due to above QT prolongation Patient is very hard of hearing DVT ppx: SCDs, no pharmacologic ppx at this time due to anticipated procedure COde status: Full code Diet: N.p.o. Attestations Medical Necessity Statement*: Patient requires further hospitalization due to symptomatic bradycardia requiring pacemaker placement today Coding Level of Care Code Acute Document Management Consultant for Dario Fwcheko Diagnoses Symptomatic bradycardia R00.1 COPD (chronic obstructive pulmonary disease) J44.9 Chronic kidney disease N18.9 Hypertension I10 History of congestive heart failure Z86.79
--- NOTE | 2020-01-29 10:47 | P.ANESASSM_ITS ---
Pre-Anesthetic Assessment Pre-Anesthetic Assessment: Height/Weight: Height 1.78 m Weight 92.334 kg Temp Pulse Resp BP Pulse Ox 97.6 F 43 L 28 H 175/76 97 01/29/20 08:00 01/29/20 10:00 01/29/20 10:00 01/29/20 10:00 01/29/20 10:00 Preop Diagnosis: Type II AV block Proposed Procedure: Operation Date: 01/29/20 15:30 Proposed Procedures p Dual chamber Pacemaker Insertion(Not Applicable) - Roberto Hutchinson MD Familial anesthetic complications: None Was Beta Jarek taken within 24 hours: N/A Social: Social History: Tobacco and No alcohol Exam: Pre-Anes Outpt Exam: alert, oriented x 3, clear to auscultation bilaterally and regular rate & rhythm Airway: Cervical ROM: WNL MP: 2 Dentition: Full Additional comments: patient very PICAYUNE Pulmonary: Pulmonary: COPD CV/HEM: CV/HEM: HTN Comments: Type II mobitz AV block with bradycardia Hypertensive - started on nitro drip : : Chronic renal Insufficiency Metabolic: Metabolic: Hyperlipidemia Anesthetic Plan: ASA status: 4 Anesthesia: MAC Risk of > 500 ml blood loss (7ml/kg in children): No Meds/Allergies Current Medications: Current Medications Generic Name Dose Route Start Last Admin Trade Name Freq PRN Reason Stop Dose Admin Acetaminophen 650 mg 01/28/20 13:26 01/28/20 22:57 Tylenol PO 650 mg Q6H PRN Administration MILD PAIN Aspirin 81 mg 01/29/20 09:00 01/29/20 09:10 Aspirin Chewable PO 81 mg DAILY JOAN Administration Atorvastatin Calci um 20 mg 01/29/20 09:00 01/29/20 09:09 Lipitor PO 20 mg DAILY JOAN Administration Bumetanide 1 mg 01/28/20 18:00 01/29/20 09:09 Bumex PO 1 mg BID JOAN Administration Chlorhexidine Gluc mirtha 1 applic 01/29/20 09:00 01/29/20 09:11 Betasept TOPICAL 1 appful DAILY JOAN Administration Nitroglycerin/Dext daniel 50 mg in 250 mls @ 0 mls/hr 01/28/20 11:00 01/29/20 10:[address] ip IV 35 mcg/min .Q0M JOAN 10.5 mls/hr Titration Protocol Per Protocol Lisinopril 20 mg 01/29/20 09:00 01/29/20 09:09 Prinivil PO 20 mg DAILY JOAN Administration Pantoprazole Sodiu m 40 mg 01/29/20 09:00 01/29/20 09:09 Protonix IVP 40 mg DAILY JOAN Administration Tramadol HCl 50 mg 01/28/20 13:26 01/29/20 09:22 Ultram PO 50 mg Q6H PRN Administration Pain PFSH Anesthesia PFSH: Medical History Chronic kidney disease COPD (chronic obstructive pulmonary disease) History of atrial fibrillation History of congestive heart failure Hypertension Peptic ulcer disease Tobacco abuse Surgical History Hx of cardiac cath December 2012, stent to LAD performed by Dr. Morataya Family History Mother Chronic kidney disease (CKD) ESRD, on PD Father CAD (coronary artery disease) Social History Smoking and tobacco status: current every day smoker cigarettes Alcohol intake: current Alcohol intake frequency: 0-2 Drinks per Day Substance/Drug Use: never Data Anesthesia CBC & Chem 7: 01/29/20 03:24 01/29/20 03:24 Other Labs: Laboratory Results - last 48 hr 01/28/20 01/28/20 01/28/20 10:37 10:37 10:37 WBC 12.5 H RBC 4.15 Hgb 13.5 Hct 40.8 L MCV 98.3 H MCH 32.5 MCHC 33.1 RDW 13.0 Plt Count 168 MPV 11.3 H Neut % (Auto) 70.9 Lymph % (Auto) 17.5 Shannon % (Auto) 6.9 Eos % (Auto) 3.5 Baso % (Auto) 0.6 Neut # (Auto) 8.89 H Lymph # (Auto) 2.2 Shannon # (Auto) 0.9 Eos # (Auto) 0.4 Baso # (Auto) 0.1 Nucleated RBC % (auto) 0 Nucleated RBCs # 0.0 Sodium 141 Potassium 3.4 L Chloride 100 Carbon Dioxide 33 H Anion Gap 11.4 BUN 19 Creatinine 2.6 H GFR Calculation 24.8 L Glucose 93 Calculated Osmolality 294 Calcium 8.9 Magnesium 2.1 Total Bilirubin 0.4 AST 13 ALT 20 Alkaline Phosphatase 70 Creatine Kinase 32 L Troponin T Baseline 52 H Troponin T 120 Minute Delta Troponin T Troponin T Hi Sens 6Hr Troponin T Hi Sens 6Hr Delta NT-Pro-B Natriuret Pep 9549 H Total Protein 6.2 L Albumin 3.7 Globulin 2.5 TSH 01/28/20 01/28/20 01/28/20 10:37 13:02 17:20 WBC RBC Hgb Hct MCV MCH MCHC RDW Plt Count MPV Neut % (Auto) Lymph % (Auto) Shannon % (Auto) Eos % (Auto) Baso % (Auto) Neut # (Auto) Lymph # (Auto) [place] # (Auto) Eos # (Auto) Baso # (Auto) Nucleated RBC % (auto) Nucleated RBCs # Sodium Potassium Chloride Carbon Dioxide Anion Gap BUN Creatinine GFR Calculation Glucose Calculated Osmolality Calcium Magnesium 2.2 Total Bilirubin AST ALT Alkaline Phosphatase Creatine Kinase Troponin T Baseline Troponin T 120 Minute 51.10 H Delta Troponin T -0.90 L Troponin T Hi Sens 6Hr 52.23 H Troponin T Hi Sens 6Hr Delta 0.23 NT-Pro-B Natriuret Pep Total Protein Albumin Globulin TSH 1.13 01/29/20 01/29/20 03:24 03:24 WBC 10.7 H RBC 3.94 L Hgb 12.8 Hct 39.3 L MCV 99.7 H MCH 32.5 MCHC 32.6 RDW 13.0 Plt Count 168 MPV 11.3 H Neut % (Auto) 69.8 Lymph % (Auto) 19.3 [place] % (Auto) 6.4 Eos % (Auto) 3.2 Baso % (Auto) 0.6 Neut # (Auto) 7.45 Lymph # (Auto) 2.1 [place] # (Auto) 0.7 Eos # (Auto) 0.3 Baso # (Auto) 0.1 Nucleated RBC % (auto) 0 Nucleated RBCs # 0.0 Sodium 139 Potassium 3.3 L Chloride 101 Carbon Dioxide 27 Anion Gap 14.3 BUN 18 Creatinine 3.0 H GFR Calculation 21.0 L Glucose 90 Calculated Osmolality 289 Calcium 9.1 Magnesium Total Bilirubin AST ALT Alkaline Phosphatase Creatine Kinase Troponin T Baseline Troponin T 120 Minute Delta Troponin T Troponin T Hi Sens 6Hr Troponin T Hi Sens 6Hr Delta NT-Pro-B Natriuret Pep Total Protein Albumin Globulin TSH Cardiac Studies: No Data to Display
[2020-01-29] MEDS: hyDRALAzine 20 mg/mL INJ 1 mL 10 MG IVP ×2 (14:54→18:08)
--- NOTE | 2020-01-29 15:06 | SC_ITS ---
WS: [id number] C-ARM RADIOGRAPHS CHEST; 2 IMAGES HISTORY: pacemaker COMPARISON: None available. Intraoperative imaging during dual-lead pacer placement. SC/C-arm FL for CVA [id number] IMPRESSION: Intraoperative imaging during dual lead pacer placement.
[2020-01-29] MEDS: nitroglycerin drip 50 MG/250 ML PREMIX 18 MG IV (15:16)
--- NOTE | 2020-01-29 15:27 | PC.NURSE ---
PACEMAKER PLACEMENT- pt transferred to surgery via bed per surgical staff to have pacemaker placed. Stable at time of transfer. Nitroglycerin gtt infusing.
[2020-01-29] MEDS: vancomycin 1,000 MG SDV 1000 MG IRRIGATION (15:54)
[2020-01-29] MEDS: lidocaine 1% INJ 20 mL SUBCUT (15:54)
--- NOTE | 2020-01-29 17:40 | PC.NURSE ---
Pt arrived from to floor from surgical procedure via bed. Stable at time of arrival. Blood pressure elevated. Doctor Juvenal notified, new orders received. Nitro gtt being administered. Resting quietly in bed. Will continue to monitor.
--- NOTE | 2020-01-29 17:46 | P.OP_ITS ---
Operative Report Date of procedure: January 29, 2020 Pre-op Diagnosis: Type II AV block Post-op diagnosis: same Procedure Done: Dual chamber pacemaker implantation Implants: Pacemaker generator atrial-ventricular leads Pathology: none sent Surgeon: Roberto Hutchinson Anesthesia: MAC and Local Estimated blood loss (mL): 20 Complications: None: Post procedure chest x-ray pending Condition: stable Disposition: ICU Brief History: 64-year-old gentleman presented to the emergency department with fatigue, near syncope, and shortness of breath with exertion. He was found to be profoundly bradycardic with heart rate in the mid upper 30s and EKG revealed Mobitz type II AV heart block. He has been refractory to medical management and dual chamber pacemaker implantation is been recommended by Dr. Avalos. This was discussed carefully with the patient along with the details and risk and rationale for the procedure. He wished to proceed. Appropriate consents have been reviewed and signed. Procedure: Procedure: Mr. Hutson was taken to the OR suite and placed in the supine position over a shoulder roll. He received conscious sedation with continuous anesthesia monitoring by. He is entire chest was sterilely prepped and draped. 1% lidocaine was infiltrated in the left subclavicular region. While in Trendelenburg position, utilizing modified seldinger technique, 2 guidewires were placed in the left subclavian vein. This was confirmed in position by fluoroscopy. Next, after infiltration with lidocaine, a subcutaneous pocket was created beginning from the exit point of the guidewire and extending laterally and inferiorly. Cautery was utilized to create the pocket just above the pectoralis musculature. Hemostasis was confirmed. An antibiotic-soaked sponge was placed in the wound. A dilator and tear-away sheath was placed over the first guidewire and advanced under fluoroscopy. Guidewire and dilator were removed. Next using a combination of curved and straight stylettes, the right ventricular lead was placed in position by fluoroscopy. The distal screw was extended. Interrogation was then performed confirming appropriate parameters. The tear-away sheath was then removed and the ventricular lead was sewn to the floor of the subcutaneous pocket. In a similar fashion dilator and tear-away sheath was placed over the 2nd guide wire and advanced under fluoroscopy. Guidewire and dilator were removed. Straight and curved stylettes were used to position the right atrial lead with fluoroscopy. Distal screw was extended. Interrogation was then performed. Tear-away sheath was then removed. Atrial lead was secured to the floor of the subcutaneous pocket. Pocket was irrigated with antibiotic solution and hemostasis again confirmed. Pacing generator was brought into the field, and after confirmation of hemostasis in the subcutaneous pocket, the leads were connected to the g enerator with appropriate capture. The entire system was interrogated by fluoroscopy. Leads and generator were secured in the pocket. Sponge and needle count was correct. The wound was then closed in 2 layers of 3-0 Vicryl suture. Skin was reapproximated in a subcuticular manner with 4-0 Monocryl suture. A pressure dressing was applied. The left arm was placed in a sling. The patient had equal breath sounds bilaterally. He was then transferred back to the ICU, where chest x-ray is currently pending. Family was made aware of the completion of the procedure. Following are the specifics of this system: Right ventricular lead is 58 cm and model 5076. Serial number [id number] Right atrial lead is 52 cm and is model 5076. Serial number [id number]. Ventricular lead had sensing of 11.0 mV with an impedance of 627 ohms. Threshold was 1.0 V Atrial lead had sensing of 1.5 mV with an impedance of 380 ohms. Threshold was 1.1 V. [employer] generator: Model # [id number] Serial #[id number]
--- NOTE | 2020-01-29 17:50 | PM.PACU ---
PACU note Post-Anesthesia Exam: awake and vital signs stable Disposition: back to floor (ICU)
[2020-01-29] MEDS: morphine 4 mg/mL SDV 1 mL 2 MG IVP ×2 (18:26→21:01)
[2020-01-29] MEDS: amlodipine 5 mg Tablet PO (18:26)
--- NOTE | 2020-01-29 19:45 | PC.NURSE ---
Patient resting in bed at this time, after easley placement. Patient had a dual pacemaker placed today and is supposed to be on bed rest for at least 6 hours. Patient was trying to get up and ambulate to bathroom. Orders to place easley to maintain bedrest and prevent pulling on pacemaker. Movement to left side is restricted as well and shoulder immobilizer is in place. Nitro gtt still running. Patient denies pain, call light within reach. Continue care.
--- NOTE | 2020-01-29 20:49 | PM.PN ---
Subjective Subjective: Interval history: Patient continues to have diarrhea though stable with Mobitz type II heart block heart rate into 30s he will be going for permanent pacemaker placement today Vitals/I&O/Wt Last Vital Signs Temp 98.4 F 01/29/20 19:40 Pulse 84 01/29/20 20:16 Resp 18 01/29/20 20:16 BP 170/92 01/29/20 19:40 Pulse Ox 95 01/29/20 20:16 01/29/20 01/29/20 01/29/20 06:59 14:59 22:59 Intake Total 50 / 542.775 145.625 / 145.625 590.2 / 735.825 Output Total 4 / 4 460 / 464 Balance 50 / 542.775 141.625 / 141.625 130.2 / 271.825 Weight last 48 hrs Weight 203 lb 9 oz Weight 209 lb Physical Exam Narrative: EXAM NARRATIVE: GENERAL: Patient is alert, awake and oriented x3. NECK: No jugular vein distension. HEENT: No cyanosis. No icterus. No pallor. HEART: Regular S1 and S2. No murmur, rub or gallop. LUNGS: Decreased breath sound bilaterally with prolonged expiration ABDOMEN: Soft, nontender and nondistended. Positive bowel sounds. No guarding, rebound or tenderness. CENTRAL NERVOUS SYSTEM: Grossly nonfocal. EXTREMITIES: Lower extremities without edema bilaterally. Pulses palpable in the lower extremities, both dorsalis pedis and posterior tibial. Urinary Catheter Management^: Coude: Cath Placed During This Visit: yes Reason for Continuing Indwelling Catheter: Accurate Measurement of Urinary Output in Critically Ill Patients Urinary Catheter Date of Insertion: 01/29/20 Urinary Catheter Time of Insertion: 19:39 Data : 01/29/20 03:24 01/29/20 03:24 A&P Assessment and plan (1) Heart block AV second degree: Will be going for permanent pacemaker now. Status: Acute (2) Hypertension: We will optimize medicine to control blood pressure. Status: Acute Attestations Medical Necessity Statement*: Require continuation hospitalization for above present care. Coding Level of Care Code Established Pt Acute Sales And In Home Delivery Specialist for Dario Crum Patient Type Established History Expanded Problem Focused Exam Expanded Problem Focused Medical Decision Making Moderate Complexity Diagnoses Heart block AV second degree I44.1 Hypertension I10
--- NOTE | 2020-01-29 20:58 | PC.NURSE ---
Patient now wearing SCD's for VTE prophylaxis. Since easley is in place and patient isn't having to be up and down to restroom so frequently.
[2020-01-30] VITALS (14 sets, daily range): BP systolic 117–169; BP diastolic 61–101; PULSE 78–94; RESP 16–37; TEMP 36.9–37.1; O2SAT 91–96
--- NOTE | 2020-01-30 00:24 | PC.NURSE ---
Patient resting in bed with eyes shut. Patients urine output has been significant after easley placement. Patient denies any pain at this time. Nitro gtt still running, V/S wnl. Call light within reach. continue care
--- NOTE | 2020-01-30 02:14 | PC.NURSE ---
Patient awake in room. Hernandez does have some hematuria present. No complaints of pain from catheter though. Dayshift did attempt a catheter placement on dayshi unsuccessfully, before senior grant writer placed coude tip catheter this shift. Continue care.
[2020-01-30 03:59] LABS: Basophils # 0.1 10^3/uL (0.0-0.1); Basophils % 0.5 %; Eosinophils # 0.1 10^3/uL (0.0-0.8); Eosinophils % 1.1 %; Hematocrit 39.7 % (42.0-52.0); Hemoglobin 12.9 g/dL (11.7-16.6); Lymphocytes # 1.3 10^3/uL (0.8-4.8); Lymphocytes % 10.7 %; Mean Corpuscular HGB Conc 32.5 g/dL (30.0-36.0); Mean Corpuscular Hemoglobin 32.2 pg (28.0-34.0); Mean Platelet Volume 11.2 fL (7.4-10.4); Monocytes # 0.7 10^3/uL (0.2-0.9); Monocytes % 5.9 %; Neutrophils # 9.83 10^3/uL (1.8-7.7); Neutrophils % 81.2 %; Nucleated Red Blood Cells % 0 %; Platelet Count 189 10^3/cmm (130-400); Red Blood Count 4.01 10^6/uL (4.1-5.3); White Blood Count 12.1 10^3/uL (4.0-10.0)
[2020-01-30 04:41] LABS: Anion Gap 15.6 (5-19); Blood Urea Nitrogen 15 mg/dL (8-23); Calcium 9.4 mg/dL (8.5-10.5); Carbon Dioxide 23 mmol/L (22-29); Chloride 105 mmol/L (98-107); Glomerular Filtration Rate 27.2 mL/min (90-130); Glucose 85 mg/dL (65-115); Osmolality Calculated 290 mOsm/kg (285-295); Potassium 3.6 mmol/L (3.5-5.1); Sodium 140 mmol/L (136-145)
--- NOTE | 2020-01-30 06:00 | ECG_ITS ---
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: : [id number] Requested By: Roberto Hutchinson Order Number: [id number] Liza MD: POONAM GARZA Measurements Intervals [place] Rate: 85 P: -53 NH: 159 QRS: -61 QRSD: 194 T: 112 QT: 489 QTc: 582 Interpretive Statements ELECTRONIC VENTRICULAR PACEMAKER ABNORMAL RHYTHM ECG Compared to ECG 01/29/2020 09:30:59 Sinus bradycardia no longer present Right bundle-branch block no longer present Left anterior fascicular block no longer present Myocardial infarct finding no longer present Electronically Signed On 01-30-2020 18:23:38 CDT by POONAM GARZA [id number]
--- NOTE | 2020-01-30 06:00 | XR_ITS ---
WS: [id number] Exam: XR chest 1V [id number] Date/Time of Exam: 01/30/2020 4:30 AM Reason For Exam: Post permanent pacemaker placement; visualize lead tip Comparison 01/28/2020. The lungs are hyperinflated. There is coarsening of interstitial markings at probably represent chron ic change. No consolidated infiltrates. No pleural effusion. Mild cardiac enlargement unchanged. The mediastinum and bony thorax are unremarkable. A permanent cardiac pacer superimposes the left chest. XR/XR chest 1V 20022 IMPRESSION: 1. Pulmonary hyperinflation with chronic interstitial change. 2. Mild cardiac enlargement. 3. No acute process. No change.
--- NOTE | 2020-01-30 06:14 | PC.NURSE ---
SHIFT SUMMARY: Patient resting in room, immobilizer in place per orders. Patient's lung sounds have crackles present with expiratory wheezes. Patient denies any pain at this time, but did request pain medication earlier in the shift. Patient is still currently on Nitro gtt at 25 mcg/min and V/S all WNL. Hernandez in place and draining appropriately; patient does have some hematuria urine in bag; patient still denies any pain associated with catheter. SCD's in place. Patient did drink 480mL's of orange juice this am. Call light within reach; continue care.
--- NOTE | 2020-01-30 07:23 | PM.PN ---
Subjective Subjective: Interval history: Postop day #1 status post dual-chamber pacemaker implantation. No complaints. Minimal operative discomfort. Paced rhythm in the 80s. Vitals/I&O/Wt Last Vital Signs Temp 98.5 F 01/30/20 04:00 Pulse 89 01/30/20 04:00 Resp 28 H 01/30/20 05:55 BP 152/84 01/30/20 05:55 Pulse Ox 95 01/30/20 05:55 01/29/20 01/30/20 01/30/20 22:59 06:59 14:59 Intake Total 949.0 / 1094.625 665.225 / 1759.850 Output Total 460 / 464 2400 / 2864 Balance 489.0 / 630.625 -1734.775 / -1104.150 Weight last 48 hrs Weight 195 lb 3 oz Weight 203 lb 9 oz Weight 209 lb Physical Exam Chest: OTHER: Outer compressive dressing removed. Inner dressing remains in place for another 24 hours. No substantial swelling or ecchymosis noted. I removed his arm immobilizer. Urinary Catheter Management^: Coude: Cath Placed During This Visit: yes Reason for Continuing Indwelling Catheter: Accurate Measurement of Urinary Output in Critically Ill Patients Urinary Catheter Date of Insertion: 01/29/20 Urinary Catheter Time of Insertion: 19:39 Data : 01/30/20 03:30 01/30/20 03:30 A&P Assessment and plan (1) Status post cardiac pacemaker procedure: Postop day #1 status post dual-chamber pacemaker implantation. Recovering well. Outer dressing removed. Plan: May be discharged at discretion of attending physicians. I would leave the inner dressing in place at least another 24 hours. He may leave his immobilizer off as long as he did not raise his hand above his head for another 3 days. Frequently, it is advisable to wear the immobilizer at night while sleeping due to involuntary movement. He may follow-up in the pacemaker clinic in 1 week. Status: Acute Attestations Medical Necessity Statement*: Status post dual-chamber pacemaker implantation secondary to symptomatic bradycardia for Mobitz type II AV heart block Time Spent in Patient Care: less than 15 minutes Coding Level of Care Code Acute Orchard Pruner for Dario Fwcheko Diagnoses Status post cardiac pacemaker procedure Z95.0
[2020-01-30] MEDS: pantoprazole 40 mg SDV IVP (08:03)
[2020-01-30] MEDS: chlorhexidine gluconate 4% Btl 118 mL 1 APPLIC TOPICAL (08:03)
[2020-01-30] MEDS: lisinopril 20 mg Tablet PO (08:03)
[2020-01-30] MEDS: atorvastatin 40 mg Tablet 20 MG PO (08:03)
[2020-01-30] MEDS: bumetanide 1 mg Tablet PO (08:03)
[2020-01-30] MEDS: aspirin 81 mg Chew Tablet PO (08:03)
--- NOTE | 2020-01-30 09:25 | PM.DCS ---
Discharge Providers Date of Admission: 01/28/20 11:45 Date of Discharge: January 30, 2020 Attending Provider at Admission: Alise Sanford DO Attending Provider at Discharge: Alise Sanford DO Diagnoses at Discharge Discharge Diagnosis (1) Status post cardiac pacemaker procedure: Status: Acute Reason for Visit Reason for Visit: CHEST PAIN, LOW HR Hospital Course Hospital Course: Patient was seen and evaluated in the emergency department noted to have symptomatic bradycardia and admitted for further evaluation and treatment. Patient was taken to the ICU noted to have heart rate in the 20s to 30s with prolonged QT. Cardiology was consulted and cardiothoracic surgeon was consulted for pacemaker placement. Patient was kept off of any asaf blocking agents and kept n.p.o. for planned pacemaker placement. Patient went to the OR on 01/29/2020, with Dr. Hutchinson and had dual-chamber pacemaker implantation. Patient did well in the postoperative setting. He was noted to have elevated blood pressure and started on amlodipine, did well with this medication and on date of discharge denied any concerns. Stated that he was feeling much better, improved energy. He denied any chest pain or shortness of breath, discussed with him plan for discharge to home, he verbalized understanding and agreed with plan. Physical Exam Const: COMMON NORMALS: patient oriented x3 and alert GENERAL APPEARANCE: cooperative ORIENTATION/CONSCIOUSNESS: Yes awake, Yes oriented to person, Yes oriented to place, Yes oriented to time and Yes Other orientation findings (very hard of hearing) HENMT: COMMON NORMALS: normocephalic and atraumatic HEAD & SCALP: normocephalic and atraumatic Eye: COMMON NORMALS: Equal, round and reactive pupils present PUPIL: Yes Equal, round and reactive pupils present Neck/C-Spine: COMMON NORMALS: supple GENERAL: Yes normal visual inspection Resp: COMMON NORMALS: normal respiratory effort EFFORT & INSPECTION: Yes able to speak in complete sentences AUSCULTATION: no rhonchi and no wheezes OTHER: diminished breath sounds bilaterally, no wheezing or rhonchi Cardio: OTHER: Regular rate and rhythm, no appreciable murmur GI: COMMON NORMALS: Soft to palpation and non-tender INSPECTION: No abdominal distension AUSCULTATION: Yes normoactive bowel sounds PALPATION: Yes Soft to palpation Extremity: COMMON NORMALS: no clubbing, cyanosis or edema and no calf tenderness Neuro: COMMON NORMALS: patient oriented x3, CN's II-XII intact bilaterally, moves all extremities and no focal motor deficits SENSORIUM/ORIENTATION: Yes alert, Yes oriented to person, Yes oriented to place and Yes oriented to time SPEECH: speech normal Psych: COMMON NORMALS: mental status grossly normal and cooperative Skin: COMMON NORMALS: no rashes or lesions noted GENERAL SKIN EXAM: no rashes or lesions noted Urinary Catheter Management^: Coude: Cath Placed During This Visit: yes Reason for Continuing Indwelling Catheter: Accurate Measurement of Urinary Output in Critically Ill Patients Urinary Catheter Date of Insertion: 01/29/20 Urinary Catheter Time of Insertion: 19:39 Discharge Data Data Completed and Pending: Completed Studies During Hospitalization Category Date Time Status XR chest 1V [id number] Routine Exams 01/30/20 06:00 Completed XR chest 1V marlene ble [id number] Stat Exams 01/28/20 10:42 Completed XR shoulder LT mi n 2V* [id number] Stat Exams 01/28/20 11:36 Completed CV echo complete* [id number] Routine Ultrasound 01/29/20 07:00 Completed Pending at discharge Category Date Time Status [facility] SARS-CoV-2 RNA Routine Lab 01/28/20 17:25 Received Labs from last 24 hours 01/30/20 01/30/20 03:30 03:30 WBC 12.1 H RBC 4.01 L Hgb 12.9 Hct 39.7 L MCV 99.0 H MCH 32.2 MCHC 32.5 RDW 13.0 Plt Count 189 MPV 11.2 H Neut % (Auto) 81.2 Lymph % (Auto) 10.7 [place] % (Auto) 5.9 Eos % (Auto) 1.1 Baso % (Auto) 0.5 Neut # (Auto) 9.83 H Lymph # (Auto) 1.3 [place] # (Auto) 0.7 Eos # (Auto) 0.1 Baso # (Auto) 0.1 Nucleated RBC % (a uto) 0 Nucleated RBCs # 0.0 Sodium 140 Potassium 3.6 Chloride 105 Carbon Dioxide 23 Anion Gap 15.6 BUN 15 Creatinine 2.4 H GFR Calculation 27.2 L Glucose 85 Calculated Osmolal ity 290 Calcium 9.4 Vitals: Last Vital Signs Temp 98.5 F 01/30/20 04:00 Pulse 89 01/30/20 08:36 Resp 16 01/30/20 08:36 BP 117/101 01/30/20 08:00 Pulse Ox 94 01/30/20 08:36 Discharge Plan Discharge Patient Disposition: Home Condition: Stable Prescriptions: New amlodipine 5 mg tablet 5 mg PO DAILY 30 Days Qty: 30 RF: 0 Continued lisinopril 20 mg tablet 20 mg PO DAILY RF: 0 tramadol 50 mg tablet 50 mg PO Q6H PRN (Reason: Pain) RF: 0 aspirin 81 mg Tablet,Chewable 81 mg PO DAILY RF: 0 bumetanide 1 mg tablet 1 mg PO BID RF: 0 clopidogrel 75 mg tablet 75 mg PO DAILY RF: 0 simvastatin 40 mg tablet 40 mg PO DAILY RF: 0 Discharge Orders: Discharge Order (Routine); Ordered 01/30/20 Ordered By: Alise Sanford Referrals: Hannah Chapman FNP [Family Provider] - 1-3 days Alfredo Avalos MD [Physician] - 1 month Roberto Hutchinson MD [Physician] - 2 weeks Discharge Diet: Cardiac Discharge Activity: Increase activity as tolerated and Limit activity as instructed Patient Instructions: Post Pacemaker - Evangelina Activity Restrictions/Additional Instructions: Continue with postoperative pacemaker placement directions per Dr. Hutchinson Started on amlodipine, blood pressure medication, to take 5 mg once daily. Continue to monitor blood pressure closely and follow-up with your primary care provider for further adjustment or changes as indicated. Continue with aspirin, Plavix, statin, Bumex, lisinopril and tramadol as previously prescribed. Follow-up with your PCP in 2 to 3 days Follow-up with Dr. Hutchinson in 2 weeks Follow-up with cardiology in 4 to 6 weeks. Call your physician or present to the ED for any acute illness or concern. Discharge Attestations Time Spent in Discharge Care*: greater than 30 min Specific Discharge Activities: Specific discharge activities: educating patient, discussing with employment evaluator/case manager/social workers/dc planners and documenting/other paperwork Quality Metrics Clinical Quality Measures During this hospital stay, did patient experience: None Coding Level of Care Code Acute Neon Light Installer for Chg Fwd Diagnoses Status post cardiac pacemaker procedure Z95.0
--- NOTE | 2020-01-30 09:58 | ANE.PACU2 ---
Inpatient post-anesthesia follow up: Airway intact: Yes Vital signs: Temperature 98.5 F Pulse Rate [Monito r] 34 Pulse Rate 89 Respiratory Rate 16 Blood Pressure [Ri ght Arm] 189/90 Blood Pressure 117/101 Pulse Oximetry 94 Oxygen Delivery Me thod Room Air Oxygen Flow Rate 8 Fraction of Inspir ed Oxygen Hydration adequate: Yes Nausea and vomiting: No Pain level: 1 Mental status: Baseline
--- NOTE | 2020-01-30 10:04 | PC.NURSE ---
easley DC Easley taken out at 0830 by nurse. patient able to void 100ML in urinal shortly after.
[2020-01-30] MEDS: amlodipine 5 mg Tablet PO (11:14)
--- NOTE | 2020-01-30 12:08 | PC.NURSE ---
DC instructions Patient informed of new medication, amlodipine. education given to patient on pacemaker. questions answered by nurse. Patient informed of follow up Dr visits with PCP, heart care services and . Patient DC with shoulder immobilizer on
--- NOTE | 2020-01-30 16:52 | PC.RESP ---
Smoking Cessation and Pulmonary Rehab information sent to patient.
[2020-01-30 17:38] LABS: Quest SARS-CoV-2 RNA NOT DETECTED (NOT DETECTED)
== END 2020-01-30 11:18 | disposition home or self-care (01) | DRG 243 ==
LOC: ER 10:39 → ICU 12:32
PROVIDERS: Thoracic Surgery (Cardiothoracic Vascular Surgery); Admitting Provider Family Medicine; Emergency Provider Family Medicine; Family Provider Nurse Practitioner Family; Visit Provider Family Medicine
PROC: 0JH606Z Insertion of Pacemaker, Dual Chamber into Chest Subcutaneous Tissue and Fascia, Open Approach (ICD-10-PCS; principal; 2020-01-29 15:30)
DX: I44.1 Atrioventricular block, second degree (principal); N18.4 Chronic kidney disease, stage 4 (severe); I13.0 Hypertensive heart and chronic kidney disease with heart failure and stage 1 through stage 4 chronic kidney disease, or unspecified chronic kidney disease; J43.9 Emphysema, unspecified; I48.91 Unspecified atrial fibrillation; Z87.11 Personal history of peptic ulcer disease; F17.210 Nicotine dependence, cigarettes, uncomplicated; I25.10 Atherosclerotic heart disease of native coronary artery without angina pectoris; Z95.5 Presence of coronary angioplasty implant and graft; I16.0 Hypertensive urgency; H91.90 Unspecified hearing loss, unspecified ear; Z87.01 Personal history of pneumonia (recurrent); R19.7 Diarrhea, unspecified; Z79.82 Long term (current) use of aspirin; Z79.02 Long term (current) use of antithrombotics/antiplatelets; I50.9 Heart failure, unspecified
CPT/HCPCS: 12345; 36415; 51702; 71045; 73030; 77001; 80048; 80053; 82550; 83735; 83880; 84443; 84484; 85025; 87635; 93005; 93306; 94664; 96375; 99283; 99291; C1779; C1786; C1898; C9113; J0360; J0461; J0690; J1940; J2250; J2270; J2704; J3010; J3370; J3490

== ENCOUNTER → 2021-08-23 10:20 | Outpatient (BNVA) | payer MEDICARE, OTHER, SELFPAY | PROVIDERS: Family Provider Nurse Practitioner Family; PCP Student in an Organized Health Care Education/Training Program; Visit Provider Internal Medicine Cardiovascular Disease | DX: I25.10 Atherosclerotic heart disease of native coronary artery without angina pectoris (principal); Z95.0 Presence of cardiac pacemaker; R00.0 Tachycardia, unspecified; I13.0 Hypertensive heart and chronic kidney disease with heart failure and stage 1 through stage 4 chronic kidney disease, or unspecified chronic kidney disease; F17.210 Nicotine dependence, cigarettes, uncomplicated; N18.9 Chronic kidney disease, unspecified; I50.9 Heart failure, unspecified; J44.9 Chronic obstructive pulmonary disease, unspecified; Z86.79 Personal history of other diseases of the circulatory system | CPT/HCPCS: 80053; 80061; 83721; 85025; 99214 ==

== ENCOUNTER → 2021-10-14 10:02 | Outpatient (BNVA) | payer MEDICARE, OTHER, SELFPAY | PROVIDERS: Family Provider Nurse Practitioner Family; PCP Student in an Organized Health Care Education/Training Program; Visit Provider Internal Medicine Cardiovascular Disease | DX: Z45.010 Encounter for checking and testing of cardiac pacemaker pulse generator [battery] (principal) | CPT/HCPCS: 93280 ==

== ENCOUNTER → 2022-04-17 14:17 | Outpatient (BNVA) | payer MEDICARE, OTHER, SELFPAY | PROVIDERS: Family Provider Nurse Practitioner Family; PCP Student in an Organized Health Care Education/Training Program; Visit Provider Internal Medicine Cardiovascular Disease | DX: I13.0 Hypertensive heart and chronic kidney disease with heart failure and stage 1 through stage 4 chronic kidney disease, or unspecified chronic kidney disease (principal); F17.210 Nicotine dependence, cigarettes, uncomplicated; N18.9 Chronic kidney disease, unspecified; I50.9 Heart failure, unspecified; I25.10 Atherosclerotic heart disease of native coronary artery without angina pectoris; Z95.0 Presence of cardiac pacemaker | CPT/HCPCS: 99214; Q3014 ==